=== PATIENT | female | born 1980 ===

== ENCOUNTER 2020-03-28 05:49 | Day surgery (SDC) | payer OTHER | END 2020-03-28 19:10 | disposition home or self-care (01) | LOC: CIR.AMB 05:49 | PROVIDERS: ATTEND Orthopaedic Surgery Hand Surgery | DX: S62.611P Displaced fracture of proximal phalanx of left index finger, subsequent encounter for fracture with malunion (principal); S62.613P Displaced fracture of proximal phalanx of left middle finger, subsequent encounter for fracture with malunion; Z20.828 Contact with and (suspected) exposure to other viral communicable diseases ==